=== PATIENT | male | born 1955 | race Caucasian/White ===

== ENCOUNTER 2018-08-11 11:33 | Emergency (ER) | payer OTHER, SELFPAY ==
[2018-08-11 11:34] VITALS: BP 148/78; PULSE 64; RESP 16; TEMP 36.6; O2SAT 96; BMI 29.7
--- NOTE | 2018-08-11 12:12 | CT_ITS ---
STUDY: CT ABDOMEN AND PELVIS WITHOUT CONTRAST REASON FOR EXAM: Male, 63 years old. Right lower quadrant pain. History of prior hernia repair. RADIATION DOSAGE (If Supplied By Facility): CTDIvol = ( 16.21 ) mGy, DLP = ( 1278.93 ) mGycm TECHNIQUE: Transaxial images were obtained from the dome of the diaphragm to the symphysis pubis without oral contrast, and without intravenous contrast. Sagittal and coronal images were reconstructed. Individualized dose optimization techniques were used for this CT. COMPARISON: None. FINDINGS: The visualized lung bases are unremarkable. The visualized portions of the heart are within normal limits. There is decreased attenuation of the liver consistent with steatosis. Normal gallbladder and extrahepatic biliary system. Normal spleen. Normal pancreas. Normal bilateral adrenal glands. There is evidence of right perinephric stranding. Mild degree of right hydronephrosis and the right and hydroureter due to a 3.5 mm taxus at the right ureterovesical junction. The calculus is about to enter into the urinary bladder. Normal left kidney. Normal visualized stomach. Normal small intestine. There are scattered colonic diverticula consistent with diverticulosis. The appendix is visualized and appears normal. There is scattered atherosclerotic calcification of the abdominal aorta, without a demonstrated aneurysm. Normal inferior vena cava. Normal retroperitoneum. Normal urinary bladder. There is enlargement of the prostate gland. It measures 4.3 cm x 5 cm. Central calcifications are seen within Small bilateral inguinal areas containing fat. The patient is status post bilateral mastectomy. There are degenerative changes of the visualized lumbar spine. CT/Abdomen/Pelvis W IV Cont ONLY IMPRESSION: Right perinephric stranding with right hydronephrosis and hydroureter due to a 3.5 mm calculus at the right ureterovesical junction as it enters the urinary bladder. Electronically Signed: Lucius Huang MD at 13:51 EST Tel [phone], Service support ,
--- NOTE | 2018-08-11 12:13 | ED.VIS.GEN ---
History of Present Illness Chief Complaint: Abd Pain Informant: Patient Onset: Hours - 8 Context: Gradual Onset Timing: Continuous - not colicky Quality: ache Location: RLQ Current Severity: Severe Maximum Severity: Severe Worsened by: bumps in road during car rides Relieved by: nothing Associated Symptoms: n/v Narrative: Never had this pain before. Saw his PCP today and sent to the ER regarding possible appendicitis. He had a herniorrhaphy in the past and no other abdominal surgeries. No urinary symptoms, no problem with bowel movements, no fevers. Prior similar symptoms: No Past Medical History - Allergies and Home Meds Allergies/Adverse Reactions: Allergies No Known Allergies Allergy (Verified 08/11/18 11:36) Primary Care Physician: Michael Bhatt MD [Primary Care Provider] - Past Medical History: None Surgical History: herniorrhaphy Lives: Spouse/ Significant Other Smoking Status: Never smoker Review of Systems General: Reports: Malaise. Denies: Chills, Fever, Sweats Cardiovascular: Denies: Chest pain, Palpitations Respiratory: Denies: Dyspnea, Cough, Dyspnea on exertion Gastrointestinal: Reports: Abdominal pain, Nausea, Vomiting. Denies: Diarrhea, Constipation, Melena, Hematochezia Genitourinary: Denies: Dysuria, Hematuria, Frequency Musculoskeletal: Denies: Neck pain, Back pain, Swelling, Extremity Pain Skin: Denies: Rash, Abscess Neurological: Denies: Headache, Weakness, Numbness Psych: Denies: Anxiety, Suicidal thoughts Endocrine: Denies: Polyuria, Polydipsia Hematologic: Denies: Easy bruising, Easy bleeding Allergy: Denies: Swelling of the mouth, Swelling of the tongue Physical Exam Vital Signs/Narrative: Vital Signs Temp Pulse Resp BP Pulse Ox 08/11/18 11:34 97.9 F 64 16 148/78 H 96 Inital Vital Signs reviewed: Yes General: Well nourished, Well developed Head: Normocephalic, Atraumatic Eyes: Perrl, EOMI ENT: Moist mucous membranes, No rhinorrhea Neck: Supple, Nontender Cardiovascular: Regular rate, Regular rhythm, No murmurs Respiratory: No distress, CTA bilaterally, Chest nontender Abdomen: Soft, Nondistended, Normal bowel sounds, Tender - Right lower quadrant, lateral to McBurney's point. Negative for: Guarding, Rebound tenderness, Inguinal hernia, Psoas sign, Obturator sign, Rovsig's sign, Weaver's sign Back: Nontender, Normal Inspection. Negative for: CVA tenderness Extremities: Nontender, No edema Skin: Normal color, No rash Neurological: Alert, Oriented x3, Cranial nerves II-XII grossly intact, Normal Strength, Normal Sensation Psychological: Normal affect Diagnostic/Tx/Re-eval Impressions Abdomen/Pelvis CT 08/11/18 12:12 IMPRESSION: Right perinephric stranding with right hydronephrosis and hydroureter due to a 3.5 mm calculus at the right ureterovesical junction as it enters the urinary bladder. Electronically Signed: Lucius Huang MD at 13:51 EST Tel [phone], Service support , 08/11/18 12:12 Abdomen/Pelvis W IV Cont ONLY [CT] Stat Laboratory Results 08/11/18 08/11/18 08/11/18 12:27 12:27 14:25 WBC 9.6 RBC 4.92 Hgb 15.8 Hct 46.4 MCV 94.3 H MCH 32.1 H MCHC 34.1 RDW 13.6 RDW Differential 45.2 H Plt Count 173 MPV 10.5 Immature Gran % (Auto) 0.100 Neut % (Auto) 86.7 H Lymph % (Auto) 5.3 L [place] % (Auto) 7.7 Eos % (Auto) 0.0 Baso % (Auto) 0.2 Absolute Neuts (auto) 8.3 H Absolute Lymphs (auto) 0.51 L Total Counted Not Reportable Differential Comment COMMENT Sodium 144 Potassium 4.2 Chloride 111 H Carbon Dioxide 25.0 Anion Gap 8 BUN 17 Creatinine 1.31 H Estim Creat Clear Calc 66.92 Est GFR (MDRD) Af Amer 71 Est GFR (MDRD) Non-Af 59 L BUN/Creatinine Ratio 13.0 Glucose 129 H Calcium 9.2 Total Bilirubin 0.60 AST 20 ALT 35 Alkaline Phosphatase 72 Total Protein 8.2 Albumin 4.4 Globulin 3.8 Albumin/Globulin Ratio 1.2 Urine Color Yellow Urine Clarity Clear Urine pH 6.0 Ur Specific [place] 1.010 Urine Protein Negative Urine Glucose (UA) Normal Urine Ketones 15 H Urine Occult Blood Negative Urine Nitrite Negative Urine Bilirubin Negative Urine Urobilinogen Normal Ur Leukocyte Esterase 25 H - Medical Decision Making After a dose of morphine, patient really did not feel much better. Therefore he was given another dose along with Toradol, and on reevaluation is discomfort is completely gone. CT showed a normal appendix and right perinephric stranding with hydronephrosis from a 3.5 mm UVJ stone, likely explaining his symptoms. He was reassured. He feels well. Expectant management indicated. Given urology for follow-up if he needs it, he does have a little renal insufficiency unknown if that is acute or chronic, no old labs available. No sign of urine infection associated with this. Given urine strainers, her prescription for analgesics, as well as Flomax to see if that helps, given reasons to return. He is comfortable with this plan. ED Disposition - Plan for ED Patient: Disposition: Home or Assisted Living Chief Complaint: Abd Pain Diagnosis: Ureteral colic, Urolithiasis, Renal insufficiency Instructions: ED Stone Renal W Colic, ED Strainer Urine Prescriptions: Oxycodone HCl/Acetaminophen [Percocet 5/325] 1 tab PO Q4H PRN PRN 3 Days #18 tab PRN Reason: Pain Ondansetron [Zofran] 8 mg PO Q8H PRN PRN #15 tab PRN Reason: Nausea Tamsulosin HCl [Flomax] 0.4 mg PO DAILY #7 cap Referrals: Michael Bhatt MD [Primary Care Provider] - Luciano Pryor MD [STAFF PHYSICIAN] - 10-14 Days if not better
[2018-08-11] MEDS: Morphine 4 MG/ML Syringe IV ×2 (12:31→13:41)
[2018-08-11] MEDS: 0.9% Normal Saline 1,000 ML 1000 ML IV (12:33)
[2018-08-11] MEDS: Ondansetron 4 MG/2 ML Vial IV (12:33)
[2018-08-11 12:48] LABS: Absolute Lymphocyte Count 0.51 X10^3/ul (0.83-4.51); Absolute Neutrophil Count 8.3 X10^3/uL (2.0-7.7); Basophil# 0.02 X10^3/uL; Basophil% 0.2 % (0-1); Hematocrit 46.4 % (40-54); Hemoglobin 15.8 g/dl (13.0-16.5); Lymphocyte # 0.51 X10^3/ul (4.0); Lymphocyte % 5.3 % (19-41); Mean Corp Hgb Conc 34.1 g/gl (32-36); Mean Corpuscular Hgb 32.1 pg (27.0-32.0); Mean Corpuscular Volume 94.3 fL (80-94); Mean Platelet Vol. 10.5 fl (6.2-12.0); Monocyte# 0.74 X10^3/uL; Monocyte% 7.7 % (0-10); Neutrophil # 8.27 X10^3/uL (2.7-7.7); Neutrophil % 86.7 % (47-70); Platelet Count 173 K/mm3 (150-450); RBC Distribution Width CV 13.6 % (11.6-14.6); RBC Distribution Width SD 45.2 fl (35.1-43.9); Red Blood Count 4.92 M/mm3 (4.6-6.2); White Blood Count 9.6 K/mm3 (4.4-11.0)
[2018-08-11 12:49] LABS: Differential Indicated SCAN CRITERIA MET; POSITIVE COUNT NO; POSITIVE DIFFERENTIAL YES; POSITIVE MORPHOLOGY NO
[2018-08-11 12:52] LABS: ALB/GLOB Ratio 1.2 RATIO (0.9-2.4); AST(SGOT) 20 U/L (15-37); Alanine Aminotransfer ALT/SGPT 35 U/L (16-61); Albumin, Serum 4.4 g/dL (3.2-5.0); Alkaline Phosphatase 72 U/L (45-117); Anion Gap 8 (5-15); BUN 17 mg/dL (7-18); Calcium,Total 9.2 mg/dL (8.5-10.1); Chloride 111 mmol/L (98-107); Creatinine, Serum 1.31 mg/dL (0.70-1.30); EST Glomerular Filtration Rate 59 mL/min (>60); Est Glom Filt Rate - Afr Amer 71 mL/min (>60); Estimated Creatinine Clearance 66.92 ml/min; Globulin 3.8 g/dL (2.2-4.2); Glucose 129 mg/dL (74-106); Potassium 4.2 mmol/L (3.5-5.1); Protein, Total 8.2 g/dL (6.4-8.2); Sodium Level 144 mmol/L (136-145)
[2018-08-11] MEDS: Ketorolac 15 MG/ML Vial IV (14:20)
[2018-08-11 14:26] VITALS: BP 141/88; PULSE 77; RESP 16; O2SAT 98
[2018-08-11 14:27] LABS: Bacteria 0 SEEN /hpf (None Seen); Mucous, Urine 0 SEEN /hpf (<or=2+); Red Blood Cells-Urine 0 SEEN /hpf (0-5); Squamous Epithelial Cells - UA 0 SEEN /hpf (0-5)
[2018-08-11 14:29] LABS: Color, Urine Yellow (Yellow); Glucose, Dipstick Normal (Normal); Ketone-Dipstick 15 mg/dl (Negative); Leukocyte Esterase-Dipstick 25 /ul (Negative); Nitrite-Dipstick Negative (Negative); Occult Blood-Urine Negative /ul (Negative); Protein-Dipstick Negative (Negative); Urine Bilirubin Dipstick Negative (Negative); Urine Clarity Clear (Clear); Urine Urobilinogen Normal (Normal)
[2018-08-11 14:52] LABS: White Blood Cells 0-5 SEEN /hpf (0-5)
[2018-08-11 15:05] VITALS: BP 125/83; PULSE 87; RESP 16; O2SAT 95
--- OUTSIDE RECORDS SUMMARY | 2018-09-27 09:35 | XMS RPT_ITS ---
:1955 Author Organization [facility] Care Team Providers Name Role Phone HIRAL GOMEZ Attending Unavailable GERA SMITH Primary Care Unavailable PROBLEMS PROBLEMS DATE TYPE CONDITION / CODE ATTENDING STATUS SOURCE 08/11/2018 Unknown N20.0 - Calculus HIRAL GOMEZ Active [place] [facility] N20.0(ICD-10) Hospital Repository PROCEDURES PROCEDURES No Procedure Records FoundRESULTS RESULTS EMERGENCY DEPARTMENT Observed: 08/11/2018 Status: F Source: [place] SUMMARY 2:49 PM [facility] REPOSITORY [facility] Medical Records Department [address] [place] [address] Emergency Department Summary 08/11/18 1213 MR#: [id number] Acct: [id number] Name: ALEN MAR Rep #: [id number] : 1955 63 From: Hiral Gomez MD PCP: Gera Smith MD Status: REG ER History of Present Illness Chief Complaint: Abd Pain Informant: Patient Onset: Hours - 8 Context: Gradual Onset Timing: Continuous - not colicky Quality: ache Location: RLQ Current Severity: Severe Maximum Severity: Severe Worsened by: bumps in road during car rides Relieved by: nothing Associated Symptoms: n/v Narrative: Never had this pain before. Saw his PCP today and sent to the ER regarding possible appendicitis. He had a herniorrhaphy in the past and no other abdominal surgeries. No urinary symptoms, no problem with bowel movements, no fevers. Prior similar symptoms: No Past Medical History - Allergies and Home Meds Allergies/Adverse Reactions: Allergies No Known Allergies Allergy (Verified 08/11/18 11:36) Primary Care Physician: Gera Smith MD [Primary Care Provider] - Past Medical History: None Surgical History: herniorrhaphy Lives: Spouse/ Significant Other Smoking Status: Never smoker Review of Systems General: Reports: Malaise. Denies: Chills, Fever, Sweats Cardiovascular: Denies: Chest pain, Palpitations Respiratory: Denies: Dyspnea, Cough, Dyspnea on exertion Gastrointestinal: Reports: Abdominal pain, Nausea, Vomiting. Denies: Diarrhea, Constipation, Melena, Hematochezia Genitourinary: Denies: Dysuria, Hematuria, Frequency Musculoskeletal: Denies: Neck pain, Back pain, Swelling, Extremity Pain Skin: Denies: Rash, Abscess Neurological: Denies: Headache, Weakness, Numbness Psych: Denies: Anxiety, Suicidal thoughts Endocrine: Denies: Polyuria, Polydipsia Hematologic: Denies: Easy bruising, Easy bleeding Allergy: Denies: Swelling of the mouth, Swelling of the tongue Physical Exam Vital Signs/Narrative: Vital Signs 08/11/18 11:34 97.9 F 64 16 148/78 H 96 Inital Vital Signs reviewed: Yes General: Well nourished, Well developed Head: Normocephalic, Atraumatic Eyes: Perrl, EOMI ENT: Moist mucous membranes, No rhinorrhea Neck: Supple, Nontender Cardiovascular: Regular rate, Regular rhythm, No murmurs Respiratory: No distress, CTA bilaterally, Chest nontender Abdomen: Soft, Nondistended, Normal bowel sounds, Tender - Right lower quadrant, lateral to McBurney's point. Negative for: Guarding, Rebound tenderness, Inguinal hernia, Psoas sign, Obturator sign, Rovsig's sign, Weaver's sign Back: Nontender, Normal Inspection. Negative for: CVA tenderness Extremities: Nontender, No edema Skin: Normal color, No rash Neurological: Alert, Oriented x3, Cranial nerves II-XII grossly intact, Normal Strength, Normal Sensation Psychological: Normal affect Diagnostic/Tx/Re-eval Impressions Abdomen/Pelvis CT 08/11/18 12:12 IMPRESSION: Right perinephric stranding with right hydronephrosis and hydroureter due to a 3.5 mm calculus at the right ureterovesical junction as it enters the urinary bladder. Electronically Signed: Lucius Huang MD at 13:51 EST Tel [phone], Service support , 08/11/18 12:12 Abdomen/Pelvis W IV Cont ONLY [CT] Stat Laboratory Results WBC 9.6 RBC 4.92 Hgb 15.8 Hct 46.4 MCV 94.3 H - Medical Decision Making After a dose of morphine, patient really did not feel much better. Therefore he was given another dose along with Toradol, and on reevaluation is discomfort is completely gone. CT showed a normal appendix and right perinephric stranding with hydronephrosis from a 3.5 mm UVJ stone, likely explaining his symptoms. He was reassured. He feels well. Expectant management indicated. Given urology for follow-up if he needs it, he does have a little renal insufficiency unknown if that is acute or chronic, no old labs available. No sign of urine infection associated with this. Given urine strainers, her prescription for analgesics, as well as Flomax to see if that helps, given reasons to return. He is comfortable with this plan. ED Disposition - Plan for ED Patient: Disposition: Home or Assisted Living Chief Complaint: Abd Pain Diagnosis: Ureteral colic, Urolithiasis, Renal insufficiency Instructions: ED Stone Renal W Colic, ED Strainer Urine Prescriptions: Oxycodone HCl/Acetaminophen [Percocet 5/325] 1 tab PO Q4H PRN PRN 3 Days #18 tab PRN Reason: Pain Ondansetron [Zofran] 8 mg PO Q8H PRN PRN #15 tab PRN Reason: Nausea Tamsulosin HCl [Flomax] 0.4 mg PO DAILY #7 cap Referrals: Gera Smith MD [Primary Care Provider] - Luciano Pryor MD [STAFF PHYSICIAN] - 10-14 Days if not better What to do if you have Problems For any increased pain, shortness of breath, bleeding, nausea or vomiting, chest pain, or any unexpected problems, contact your Primary Care Provider. Call [facility] ([phone]) or report to the closest Emergency Room. Call 911 if necessary. 08/11/18 1024 <Electronically signed by Hiral Gomez MD> Date Hiral Gomez MD Cosigner Signature (If Indicated): Date CC: Gera Smith MD URINALYSIS, COMPLETE Collected: 08/11/2018 Status: F Source: [place] 2:25 PM [facility] REPOSITORY Order Comment: Order Date: 08/11/18 How was Urine Obtained? CLEAN CATCH TYPE CODE TESTS RESULT OUT OF RANGE REFERENCE UNITS LAB L400.3000 Yellow COLOR Normal Yellow LAB L400.3050 Clear Normal CLARITY Clear LAB L400.3200 Normal mg/dl Normal GLUCOSE, UR Normal LAB L400.3300 Negative mg/dL Normal BILIRUBIN URINE Negative LAB L400.3400 Negative mg/dl High 15 KETONE UR LAB L400.3465 1.002-1.030 Normal SP.GR. DIPSTX 1.010 LAB L400.3550 5.0 - 8.0 pH UR Normal 6.0 LAB L400.3600 Negative mg/dl PROT Normal DIPSTX Negative LAB L400.3700 Normal mg/dl Normal UROBILI Normal LAB L400.3750 Negative Normal NITRITE UR Negative LAB L400.3780 Negative /ul Normal OCCULT BLOOD-UR Negative LAB L400.3800 Negative /ul High LEUK 25 ESTERASE LAB L400.4050 0-5 /hpf WBC Normal 0-5 SEEN LAB L400.4100 0-5 /hpf 0 Normal RBC-UA SEEN LAB L400.4150 0-5 /hpf SQUAM 0 Normal EPI SEEN LAB L400.4300 None Seen /hpf 0 Normal BACTERIA SEEN LAB L400.4350 <or=2+ /hpf 0 Normal MUCUS, URINE SEEN Performed By: #### L400.0001 #### [facility] [address] [place], [place], [id number] CBC W/DIFF, AUTOMATED Collected: 08/11/2018 Status: F Source: [place] 12:27 PM [facility] REPOSITORY TYPE CODE TESTS RESULT OUT OF RANGE REFERENCE UNITS LAB L100.1000 4.4-11.0 K/mm3 Normal WBC 9.6 LAB L100.1200 4.6-6.2 M/mm3 Normal RBC 4.92 LAB L100.1300 13.0-16.5 g/dl Normal HGB 15.8 LAB L100.1400 40-54 % Normal HCT 46.4 LAB L100.1500 80-94 fL High MCV 94.3 LAB L100.1600 27.0-32.0 pg High MCH 32.1 LAB L100.1700 32-36 g/gl Normal MCHC 34.1 LAB L100.1810 11.6-14.6 % Normal RDW CV 13.6 LAB L100.1820 35.1-43.9 fl High RDW SD 45.2 LAB L100.1900 150-450 K/mm3 Normal PLT 173 LAB L100.2000 6.2-12.0 fl Normal MPV 10.5 LAB L100.2100 47-70 % High NEUT% 86.7 LAB L100.2200 19-41 % Low LY% 5.3 LAB L100.2300 0-10 % Normal MONO% 7.7 LAB L100.2400 0-5 % Normal EO% 0.0 LAB L100.2500 0-1 % Normal BASO% 0.2 LAB L100.2550 0.0-0.9 % Normal IM GRAN % 0.100 Result Comment: IG% - Immature Granulocytes (promyelocytes, myelocytes and metamyelocytes) > 1% indicates that a LEFT SHIFT is Present. LAB L100.2620 2.0-7.7 X10 3/uL High Absolute Neut 8.3 LAB L100.2720 0.83-4.51 X10 3/ul Low Absolute Lymph 0.51 LAB L100.4500 Normal SMEAR COMMENT COMMENT Result Comment: SLIDE SCANNED - LYMPHOPENIA NOTED. Performed By: #### L100.0100 #### [facility] [address] [place], [address] COMPREHENSIVE METABOLIC Collected: 08/11/2018 Status: F Source: [facility] 12:27 PM [facility] REPOSITORY TYPE CODE TESTS RESULT OUT OF RANGE REFERENCE UNITS LAB L501.0100 74-106 mg/dL High GLU 129 Result Comment: Fasting Glucose result greater than or equal to 126 mg/dL suggests DIABETES MELLITUS per A.D.A. criteria. Please note revised GLUCOSE reference range effective 2017. LAB L501.1000 7-18 mg/dL Normal BUN 17 LAB L501.1100 0.70-1.30 mg/dL High CREAT,SERUM 1.31 Result Comment: The validity of the calculated GFR AND GFRAA in patients over 70 years has not been determined. Clinical correlation is essential. LAB L501.1110 >60 mL/min Low EST GFR 59 Result Comment: Non- GFR Calc LAB L501.1115 >60 mL/min Normal EST GFR - AA 71 Result Comment: GFR Calc LAB L501.1255 ml/min Normal Estimated CRCL 66.92 LAB L501.1300 10-20 RATIO Normal BUN/CRE 13.0 LAB L501.1500 6.4-8. g/dL Normal 2 T PROT 8.2 LAB L501.1800 3.2-5. g/dL Normal 0 ALB 4.4 LAB L501.1950 2.2-4. g/dL Normal 2 GLOB 3.8 LAB L501.2000 0.9-2. RATIO Normal 4 A/G 1.2 LAB L501.2200 8.5-10 mg/dL Normal .1 CA 9.2 LAB L501.4100 15-37 U/L Normal AST 20 LAB L501.4305 45-117 U/L Normal ALK P 72 LAB L501.4405 16-61 U/L Normal ALT 35 LAB L501.4600 0.20-1 mg/dL Normal .00 T BILI 0.60 LAB L501.5300 136-14 mmol/L Normal 5 NA 144 LAB L501.5600 3.5-5. mmol/L Normal 1 K 4.2 LAB L501.5900 98-107 mmol/L High CL 111 LAB L501.6100 21.0-3 mmol/L Normal 2.0 CO2 25.0 LAB L501.6200 5-15 Normal GAP 8 Performed By: #### L500.4050 #### [facility] [address] [place], [address] ABDOMEN/PELVIS W IV CONT Observed: 08/11/2018 Status: F Source: [place] ONLY 12:13 PM [facility] REPOSITORY [facility] Imaging Services [address] [place] [address] Abdomen/Pelvis W IV Cont ONLY MR#: [id number] Acct: [id number] Name: ALEN MAR Rep #: [id number] : 1955 M 63 From: Lucius Huang MD PCP: Gera Smith MD Status: REG ER Study: Abdomen/Pelvis W IV Cont ONLY Date of Exam: 08/11/18 Exam# [id number] Ordering Dr: Hiral Gomez MD STUDY: CT ABDOMEN AND PELVIS WITHOUT CONTRAST REASON FOR EXAM: Male, 63 years old. Right lower quadrant pain. History of prior hernia repair. RADIATION DOSAGE (If Supplied By Facility): CTDIvol = ( 16.21 ) mGy, DLP = ( 1278.93 ) mGycm TECHNIQUE: Transaxial images were obtained from the dome of the diaphragm to the symphysis pubis without oral contrast, and without intravenous contrast. Sagittal and coronal images were reconstructed. Individualized dose optimization techniques were used for this CT. COMPARISON: None. FINDINGS: The visualized lung bases are unremarkable. The visualized portions of the heart are within normal limits. There is decreased attenuation of the liver consistent with steatosis. Normal gallbladder and extrahepatic biliary system. Normal spleen. Normal pancreas. Normal bilateral adrenal glands. There is evidence of right perinephric stranding. Mild degree of right hydronephrosis and the right and hydroureter due to a 3.5 mm taxus at the right ureterovesical junction. The calculus is about to enter into the urinary bladder. Normal left kidney. Normal visualized stomach. Normal small intestine. There are scattered colonic diverticula consistent with diverticulosis. The appendix is visualized and appears normal. There is scattered atherosclerotic calcification of the abdominal aorta, without a demonstrated aneurysm. Normal inferior vena cava. Normal retroperitoneum. Normal urinary bladder. There is enlargement of the prostate gland. It measures 4.3 cm x 5 cm. Central calcifications are seen within Small bilateral inguinal areas containing fat. The patient is status post bilateral mastectomy. There are degenerative changes of the visualized lumbar spine. CT/Abdomen/Pelvis W IV Cont ONLY IMPRESSION: Right perinephric stranding with right hydronephrosis and hydroureter due to a 3.5 mm calculus at the right ureterovesical junction as it enters the urinary bladder. Electronically Signed: Lucius Huang MD at 13:51 EST Tel [phone], Service support , CC: HIRAL GOMEZ MD; Gera Smith MD Director Sports: Signed ALLERGIES ALLERGIES DATE TYPE / CODE NAME / CODE REACTION SEVERITY SOURCE 08/11/2018 Drug No Known Unknown [facility] Allergy/4160 Allergies/F00 Hospital 21145(SNOMED [id number](RXNOR Repository CT) M) ENCOUNTERS ENCOUNTERS ADMIT/DISCHARGE ACCOUNT ADMITTING ENCOUNTER LOCATION SOURCE NUMBER CLASS 08/11/2018/ [id number] Emergency [place] [facility] [address] [facility] ing:ED Repository PAYERS PAYERS ENCOUNTER GUARANTOR PAYER SUBSCRIBER SOURCE 08/11/2018 ALEN Peña [place] [address] [facility]: [facility], [facility]: [id number] [address]Tsd: [id number] Repository Date:1933-05-46[address] [id number], [place] [address]CH: 08/11/2018 Secondary NOT GIVENUNK Steve Insurance:SELF PAY [facility] Number: Effective Repository Date:2018-08-11
== END 2018-08-11 15:14 | disposition home or self-care (01) ==
PROVIDERS: Emergency Provider Emergency Medicine; Family Provider Family Medicine; PCP Family Medicine
DX: N13.2 Hydronephrosis with renal and ureteral calculous obstruction (principal); Z79.899 Other long term (current) drug therapy
CPT/HCPCS: 74177; 80053; 81001; 85025; 96361; 96374; 96375; 96376; 99283; J7030; Q9967; A4216; J2405

== ENCOUNTER → 2025-02-21 | Outpatient (CLI) | payer OTHER, SELFPAY ==
[2025-02-21 12:38] LABS: Absolute Lymphocyte Count 1.83 X10^3/uL (0.83-4.51); Absolute Neutrophil Count 2.2 X10^3/uL (2.0-7.7); Basophil# 0.04 X10^3/uL; Basophil% 0.9 % (0-1); Eosinophil# 0.04 X10^3/uL; Eosinophils% 0.9 % (0-5); Hematocrit 49.3 % (40-54); Hemoglobin 16.4 g/dL (13.0-16.5); Lymphocyte # 1.83 X10^3/ul (0.83-4.51); Lymphocyte % 40.2 % (19-41); Mean Corp Hgb Conc 33.3 g/dL (32-36); Mean Corpuscular Hgb 31.9 pg (27.0-32.0); Mean Corpuscular Volume 95.9 fL (80-94); Mean Platelet Vol. 10.9 fl (6.2-12.0); Monocyte# 0.48 X10^3/uL; Monocyte% 10.5 % (0-10); NRBC Flagged by Analyzer 0 % (0-5); Neutrophil # 2.16 X10^3/uL (2.7-7.7); Neutrophil % 47.5 % (47-70); Platelet Count 211 K/mm3 (150-450); RBC Distribution Width CV 13.5 % (11.6-14.6); RBC Distribution Width SD 48.9 fl (35.1-43.9); Red Blood Count 5.14 M/mm3 (4.6-6.2); White Blood Count 4.6 K/mm3 (4.4-11.0)
[2025-02-21 13:33] LABS: ALB/GLOB Ratio 1.3 RATIO (0.9-2.4); AST(SGOT) 25 U/L (<=37); Alanine Aminotransfer ALT/SGPT 24 U/L (<=46); Albumin, Serum 4.4 g/dL (3.4-4.8); Alkaline Phosphatase 72 U/L (40-129); Anion Gap 11 (5-15); BUN 14 mg/dL (4-19); BUN/Creat Ratio 14.9 RATIO (10-20); Calcium,Total 9.4 mg/dL (7.6-11.0); Carbon Dioxide 25.9 mmol/L (21.0-32.0); Chloride 103 mmol/L (98-108); Cholesterol 258 mg/dL (<=200); Creatinine, Serum 0.91 mg/dL (0.70-1.20); EST Glomerular Filtration Rate 93 (>60); Globulin 3.3 g/dL (2.2-4.2); Glucose 101 mg/dL (70-99); High Density Lipoprotein 78 mg/dL; Low Density Lipoprotein Calc. 129 mg/dL; Potassium 4.2 mmol/L (3.3-5.1); Protein, Total 7.7 g/dL (5.9-8.4); Sodium Level 140 mmol/L (133-145); Total Bilirubin 0.56 mg/dL (0.00-1.30); Triglycerides 258 mg/dL; Very Low Density Lipoprotein 52 mg/dL (5-40); cholesterol:hdl ratio screen 3.33
[2025-02-21 13:48] LABS: PSA,Total - Annual Screen 1.01 ng/mL (0.02-4.00)
--- OUTSIDE RECORDS SUMMARY | 2025-02-21 20:54 | XMS RPT_ITS | CCD ---
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 Name Role Phone HIRAL GOMEZ Unavailable Unavailable GERA SMITH Unavailable Unavailable Problems Problem Classification Problem Date Documented Da te Episodic/Chronic Calculus of urinary tract (1 source) Calculus of kidney; Translations: [N20.0 - Calculus of kidney] Onset: 08-11-2018 Episodic Results Test Name Value Interpretation Reference Range Facility ABDOMEN AP VIEWon 09-12-2021 ABDOMEN AP VIEW Patient Name: ALEN MAR STUDY: ABDOMEN AP VIEW INDICATION: R10.31 COMPARISON: None ACCESSION NUMBER(S): [id number] ORDERING CLINICIAN: GERA SMITH FINDINGS: No radiopaque densities projecting over the expected shadows of the bilateral kidneys or expected course of the right ureter. A triangular shaped calcific density visualized projecting adjacent to the inferior left sacral ala favored to represent a vascular calcifications with distal ureteral stone felt to be less likely. Bilateral rounded calcific densities likely representing pelvic phleboliths noted. Lower lumbar spine degenerative changes noted. Bowel gas pattern is nonspecific and nonobstructive. IMPRESSION: No evidence of bilateral nephrolithiasis. A triangular shaped calcific density visualized projecting adjacent to the inferior left sacral ala favored to represent a vascular calcifications with distal ureteral stone felt to be less likely. Electronically signed by: ADAN HARO MD [facility] Abdomen/Pelvis W IV Cont ONL Yon 08-11-2018 Abdomen/Pelvis W IV Cont ONLY [facility] [address] [place], [place] [address]Czimhwf/Pelvis W IV Cont ONLYMR#: [id number] Acct: [id number]: ALEN MAR Rep #: [id number]: 1955 M 63 From: Lucius Huang MDPCP: Gera Smith MD Status: REG ERStudy: Abdomen/Pelvis W IV Cont ONLY Date of Exam: 08/11/18Exam# [id number] Ordering Dr: Hiral Gomez MDSTUDY: CT ABDOMEN AND PELVIS WITHOUT CONTRASTREASON FOR EXAM: Male, 63 years old. Right lower quadrant pain. Historyof prior hernia repair.RADIATION DOSAGE (If Supplied By Facility): CTDIvol = ( 16.21 ) mGy, DLP =( 1278.93 ) mGycmTECHNIQUE: Transaxial images were obtained from the dome of the diaphragmto the symphysis pubis without oral contrast, and without intravenouscontrast. Sagittal and coronal images were reconstructed.Individual ized dose optimization techniques were used for this CT.COMPARISON: None. FINDINGS :The visualized lung bases are unremarkable. The visualized portions of theheart are within normal limits.There is decreased attenuation of the liver consistent with steatosis.Normal gallbladder and extrahepatic biliary system. Normal spleen. Normalpancreas.Normal bilateral adrenal glands.There is evidence of right perinephric stranding. Mild degree of righthydronephrosis and the right and hydroureter due to a 3.5 mm taxus at theright ureterovesical junction. The calculus is about to enter into theurinary bladder. Normal left kidney.Normal visualized stomach. Normal small intestine. There are scatteredcolonic diverticula consistent with diverticulosis. The appendix isvisualized and appears normal.There is scattered atherosclerotic calcification of the abdominal aorta,without a demonstrated aneurysm. Normal inferior vena cava. Normalretroperitoneum.No rmal urinary bladder. There is enlargement of the prostate gland. Itmeasures 4.3 cm x 5 cm. Central calcifications are seen withinSmall bilateral inguinal areas containing fat. The patient is status postbilateral mastectomy. There are degenerative changes of the visualizedlumbar spine. ORDER #: [id number] CT/Abdomen/Pelvis W IV Cont ONLYIMPRESSION:Right perinephric stranding with right hydronephrosis and hydroureter dueto a 3.5 mm calculus at the right ureterovesical junction as it enters theurinary bladder.Electronically Signed:Lucius Huang MD at 13:51 ESTTel [phone], Service support , AY: HIRAL GOMEZ MD; Gera Smith MD Balancer Scale:Signed Normal [facility] CBC W/Diff, Automatedon 07-30 SMEAR COMMENT COMMENT Normal [facility] Comment on above: Result Comment: SLID E SCANNED - LYMPHOPENIA NOTED. Performed By: #### L 100.0100 ####[facility] [address] [place], [address] Absolute Neut 8.3 X10 3/uL High 2.0-7.7 [facility] Comment on above: Performed By: #### L 100.0100 ####[facility] [address] [place], [address] Basophils/100 WBC Auto (Bld) 0.2 % Normal 0-1 [facility] Comment on above: Performed By: #### L 100.0100 ####[facility] [address] [place], [address] Eosinophils/100 WBC Auto (Bld) 0.0 % Normal 0-5 [facility] Comment on above: Performed By: #### L 100.0100 ####[facility] [address] [place], [address] Erythrocyte distribution width Auto Ratio (RBC) 13.6 % Normal 11.6-14.6 [facility] Comment on above: Performed By: #### L 100.0100 ####[facility] [address] [place], [address] Hematocrit Auto Volume Fraction (Bld) 46.4 % Normal 40-54 [facility] Comment on above: Performed By: #### L 100.0100 ####[facility] [address] [place], [address] Hemoglobin mass conc (Bld) 15.8 g/dL Normal 13.0-16.5 [facility] Comment on above: Performed By: #### L 100.0100 ####[facility] [address] [place], [address] IM GRAN % 0.100 % Normal 0.0-0.9 [facility] Comment on above: Result Comment: IG% - Immature Granulocytes (promyelocytes, myelocytes andmetamyelocytes) > 1% indicates that a LEFT SHIFT is Present. Performed By: #### L 100.0100 ####[facility] [address] [place], [address] Lymphocytes Auto #/vol (Bld) 0.51 X10 3/ul Low 0.83-4.51 [facility] Comment on above: Performed By: #### L 100.0100 ####[facility] [address] [place], [address] Lymphocytes/100 WBC Auto (Bld) 5.3 % Low 19-41 [facility] Comment on above: Performed By: #### L 100.0100 ####[facility] [address] [place], [address] MCH Auto Entitic mass (RBC) 32.1 pg High 27.0-32.0 [facility] Comment on above: Performed By: #### L 100.0100 ####[facility] [address] [place], [address] MCHC Auto mass conc (RBC) 34.1 g/gl Normal 32-36 [facility] Comment on above: Performed By: #### L 100.0100 ####[facility] [address] [place], [address] MCV Auto Entitic volume (RBC) 94.3 fL High 80-94 [facility] Comment on above: Performed By: #### L 100.0100 ####[facility] [address] [place], [address] Monocytes/100 WBC Auto (Bld) 7.7 % Normal 0-10 [facility] Comment on above: Performed By: #### L 100.0100 ####[facility] [address] [place], [address] Neutrophils/100 WBC Auto (Bld) 86.7 % High 47-70 [facility] Comment on above: Performed By: #### L 100.0100 ####[facility] [address] [place], [address] Platelet mean volume Auto Entitic volume (Bld) 10.5 fL Normal 6.2-12.0 [facility] Comment on above: Performed By: #### L 100.0100 ####[facility] [address] [place], [address] Platelets Auto #/vol (Bld) 173 10*3/uL Normal 150-450 [facility] Comment on above: Performed By: #### L 100.0100 ####[facility] [address] [place], [address] RBC Auto #/vol (Bld) 4.92 M/mm3 Normal 4.6-6.2 [facility] Comment on above: Performed By: #### L 100.0100 ####[facility] [address] [place], [address] RDW SD 45.2 fl High 35.1-43.9 [facility] Comment on above: Performed By: #### L 100.0100 ####[facility] [address] [place], [address] WBC Auto #/vol (Bld) 9.6 10*3/uL Normal 4.4-11.0 [facility] Comment on above: Performed By: #### L 100.0100 ####[facility] [address] [place], [address] Comprehensive Metabolic Prof ctcora 08-11-2018 Albumin mass conc 4.4 g/dL Normal 3.2-5.0 [facility] Comment on above: Performed By: #### L 500.4050 ####[facility] [address] [place], [address] Albumin/Globulin mass ratio 1.2 {ratio} Normal 0.9-2.4 [facility] Comment on above: Performed By: #### L 500.4050 ####[facility] [address] [place], [address] ALP enzyme act/vol 72 U/L Normal 45-117 [facility] Comment on above: Performed By: #### L 500.4050 ####[facility] [address] [place], [address] ALT enzyme act/vol 35 U/L Normal 16-61 [facility] Comment on above: Performed By: #### L 500.4050 ####[facility] [address] [place], [address] AST enzyme act/vol 20 U/L Normal 15-37 [facility] Comment on above: Performed By: #### L 500.4050 ####[facility] [address] [place], [address] Bilirubin mass conc 0.60 mg/dL Normal 0.20-1.00 [facility] Comment on above: Performed By: #### L 500.4050 ####[facility] [address] [place], [address] Calcium mass conc 9.2 mg/dL Normal 8.5-10.1 [facility] Comment on above: Performed By: #### L 500.4050 ####[facility] [address] [place], [address] Chloride molar conc 111 mmol/L High 98-107 [facility] Comment on above: Performed By: #### L 500.4050 ####[facility] [address] [place], [address] CO2 molar conc 25.0 mmol/L Normal 21.0-32.0 [facility] Comment on above: Performed By: #### L 500.4050 ####[facility] [address] [place], [address] Creatinine mass conc 1.31 mg/dL High 0.70-1.30 [facility] Comment on above: Result Comment: The validity of the calculated GFR AND GFRAA in patients over70 years has not been determined. Clinical correlation isessential. Performed By: #### L 500.4050 ####[facility] [address] [place], [address] EST GFR - AA 71 mL/min Normal >60 [facility] Comment on above: Result Comment: Afri can Russian GFR Calc Performed By: #### L 500.4050 ####[facility] [address] [place], [address] Estimated CRCL 66.92 ml/min Normal [facility] Comment on above: Performed By: #### L 500.4050 ####[facility] [address] [place], [address] GAP 8 Normal 5-15 [facility] Comment on above: Performed By: #### L 500.4050 ####[facility] [address] [place], [address] GFR/1.73 sq M predicted among non-blacks MDRD vol rate/area (S/P/Bld) 59 mL/min/{1.73_m2} Low >60 [facility] Comment on above: Result Comment: Non- GFR Calc Performed By: #### L 500.4050 ####[facility] [address] [place], [address] Globulin Calculated mass conc (S) 3.8 g/dL Normal 2.2-4.2 [facility] Comment on above: Performed By: #### L 500.4050 ####[facility] [address] [place], [address] Glucose mass conc 129 mg/dL High 74-106 [facility] Comment on above: Result Comment: Fast ing Glucose result greater than or equal to 126 mg/dLsuggests DIABETES MELLITUS per A.D.A. criteria.Please note revised GLUCOSE reference range kdjxqjnoq16/02/2018. Performed By: #### L 500.4050 ####[facility] [address] [place], [address] Potassium molar conc 4.2 mmol/L Normal 3.5-5.1 [facility] Comment on above: Performed By: #### L 500.4050 ####[facility] [address] [place], [address] Protein mass conc 8.2 g/dL Normal 6.4-8.2 [facility] Comment on above: Performed By: #### L 500.4050 ####[facility] [address] [place], [address] Sodium molar conc 144 mmol/L Normal 136-145 [facility] Comment on above: Performed By: #### L 500.4050 ####[facility] [address] [place], [address] Urea nitrogen mass conc 17 mg/dL Normal 7-18 [facility] Comment on above: Performed By: #### L 500.4050 ####[facility] [address] [place], [address] Urea nitrogen mass conc (Bld) 13.0 RATIO Normal 10-20 [facility] Comment on above: Performed By: #### L 500.4050 ####[facility] [address] [place], [address] Emergency Department Summary on 08-11-2018 [facility] [address] [address]Cxhifpcqh Department Oarkgsa62/13/18 1213#: [id number] Acct: [id number]: ALEN MAR Rep #: [id number]: 1955 63 From: Hiral Gomez MDPCP: Gera Smith MD Status: REG ERHistory of Present IllnessChief Complaint: Abd PainInformant: PatientOnset: Hours - 8Context: Gradual OnsetTiming: Continuous - not colickyQuality: acheLocation: RLQCurrent Severity: SevereMaximum Severity: SevereWorsened by: bumps in road during car ridesRelieved by: nothingAssociated Symptoms: n/vNarrative:Never had this pain before. Saw his PCP today and sent to the ER regarding possibleappendicitis. He had a herniorrhaphy in the past and no other abdominal surgeries. No urinarysymptoms, no problem with bowel movements, no fevers.Prior similar symptoms: NoPast Medical History- Allergies and Home MedsAllergies/Adverse Reactions:AllergiesNo Known Allergies Allergy (Verified 08/11/18 11:36)Primary Care Physician:Gera Smith MD [Primary Care Provider] -Past Medical History: NoneSurgical History: herniorrhaphyLives: Spouse/ Significant OtherSmoking Status: Never smokerReview of SystemsGeneral: Reports: Malaise. Denies: Chills, Fever, SweatsCardiovascular: Denies: Chest pain, PalpitationsRespiratory: Denies: Dyspnea, Cough, Dyspnea on exertionGastrointestinal : Reports: Abdominal pain, Nausea, Vomiting. Denies: Diarrhea, Constipation,Melena, HematocheziaGenitourinar y: Denies: Dysuria, Hematuria, FrequencyMusculoskeletal : Denies: Neck pain, Back pain, Swelling, Extremity PainSkin: Denies: Rash, AbscessNeurological: Denies: Headache, Weakness, NumbnessPsych: Denies: Anxiety, Suicidal thoughtsEndocrine: Denies: Polyuria, PolydipsiaHematologic: Denies: Easy bruising, Easy bleedingAllergy: Denies: Swelling of the mouth, Swelling of the tonguePhysical ExamVital Signs/Narrative:Vital Signs08/11/18 11:34 97.9 F 64 16 148/78 H 96Inital Vital Signs reviewed: YesGeneral: Well nourished, Well developedHead: Normocephalic, AtraumaticEyes: Perrl, EOMIENT: Moist mucous membranes, No rhinorrheaNeck: Supple, NontenderCardiovascular: Regular rate, Regular rhythm, No murmursRespiratory: No distress, CTA bilaterally, Chest nontenderAbdomen: Soft, Nondistended, Normal bowel sounds, Tender - Right lower quadrant, lateral toMcBurney's point. Negative for: Guarding, Rebound tenderness, Inguinal hernia, Psoas sign,Obturator sign, Rovsig's sign, Weaver's signBack: Nontender, Normal Inspection. Negative for: CVA tendernessExtremities: Nontender, No edemaSkin: Normal color, No rashNeurological: Alert, Oriented x3, Cranial nerves II-XII grossly intact, Normal Strength, NormalSensationPsycholog ical: Normal affectDiagnostic/Tx/Re-e valImpressionsAbdomen/Pe lvis CT 08/11/18 12:12IMPRESSION:Right perinephric stranding with right hydronephrosis and hydroureter dueto a 3.5 mm calculus at the right ureterovesical junction as it enters theurinary bladder.Electronically Signed:Lucius Huang MD at 13:51 ESTTel [phone], Service support , 12 12:12Abdomen/Pelvis W IV Cont ONLY [CT] StatLaboratory ResultsWBC 9.6RBC 4.92Hgb 15.8Hct 46.4MCV 94.3 H- Medical Decision MakingAfter a dose of morphine, patient really did not feel much better. Therefore he was givenanother dose along with Toradol, and on reevaluation is discomfort is completely gone. CTshowed a normal appendix and right perinephric stranding with hydronephrosis from a 3.5 mm UVJstone, likely explaining his symptoms. He was reassured. He feels well. Expectant managementindicated. Given urology for follow-up if he needs it, he does have a little renalinsufficiency unknown if that is acute or chronic, no old labs available. No sign of urineinfection associated with this. Given urine strainers, her prescription for analgesics, aswell as Flomax to see if that helps, given reasons to return. He is comfortable with thisplan.ED Disposition- Plan for ED Patient:Disposition: Home or Assisted LivingChief Complaint: Abd PainDiagnosis:Ureteral colic, Urolithiasis, Renal insufficiencyInstruction s: ED Stone Renal W Colic, ED Strainer UrinePrescriptions:Oxyco done HCl/Acetaminophen [Percocet 5/325] 1 tab PO Q4H PRN PRN 3 Days #18 tabPRN Reason: PainOndansetron [Zofran] 8 mg PO Q8H PRN PRN #15 tabPRN Reason: NauseaTamsulosin HCl [Flomax] 0.4 mg PO DAILY #7 capReferrals:Bubba Smith MD [Primary Care Provider] -Luciano Pryor MD [STAFF PHYSICIAN] - 10-14 Days if not betterWhat to do if you have ProblemsFor any increased pain, shortness of breath, bleeding, nausea or vomiting, chest pain, or anyunexpected problems, contact your Primary Care Provider. Call [facility] ([phone])or report to the closest Emergency Room.Call 911 if necessary.08/11/18 1449 Date Hiral Gomez [facility] TULSAosign Signature (If Indicated): Date CC : Gera Smith MD Normal [facility] Urinalysis, Completeon 08-11 BACTERIA 0 SEEN Normal None Seen [facility] Comment on above: Order Comment: Order Date: 08/11/18How was Urine Obtained? CLEAN CATCH Performed By: #### L 400.0001 ####[facility] [address] [place], [address] MUCUS, URINE 0 SEEN Normal [facility] Comment on above: Order Comment: Order Date: 08/11/18How was Urine Obtained? CLEAN CATCH Performed By: #### L 400.0001 ####[facility] [address] [place], [address] RBC Test strip #/vol (U) 0 SEEN Normal 0-5 [facility] Comment on above: Order Comment: Order Date: 08/11/18How was Urine Obtained? CLEAN CATCH Performed By: #### L 400.0001 ####[facility] [address] [place], [address] SQUAM EPI 0 SEEN Normal 0-5 [facility] Comment on above: Order Comment: Order Date: 08/11/18How was Urine Obtained? CLEAN CATCH Performed By: #### L 400.0001 ####[facility] [address] [place], [address] WBC 0-5 SEEN Normal 0-5 [facility] Comment on above: Order Comment: Order Date: 08/11/18How was Urine Obtained? CLEAN CATCH Performed By: #### L 400.0001 ####[facility] [address] [place], [address] BILIRUBIN URINE Negative Normal Negative [facility] Comment on above: Order Comment: Order Date: 08/11/18How was Urine Obtained? CLEAN CATCH Performed By: #### L 400.0001 ####[facility] [address] [place], [address] CLARITY Clear Normal Clear [facility] Comment on above: Order Comment: Order Date: 08/11/18How was Urine Obtained? CLEAN CATCH Performed By: #### L 400.0001 ####[facility] [address] [place], [address] COLOR Yellow Normal Yellow [facility] Comment on above: Order Comment: Order Date: 08/11/18How was Urine Obtained? CLEAN CATCH Performed By: #### L 400.0001 ####[facility] [address] [place], [address] GLUCOSE, UR Normal Normal Normal [facility] Comment on above: Order Comment: Order Date: 08/11/18How was Urine Obtained? CLEAN CATCH Performed By: #### L 400.0001 ####[facility] [address] [place], [address] KETONE UR 15 mg/dl High Negative [facility] Comment on above: Order Comment: Order Date: 08/11/18How was Urine Obtained? CLEAN CATCH Performed By: #### L 400.0001 ####[facility] [address] [place], [address] LEUK ESTERASE 25 /ul High Negative [facility] Comment on above: Order Comment: Order Date: 08/11/18How was Urine Obtained? CLEAN CATCH Performed By: #### L 400.0001 ####[facility] [address] [place], [address] NITRITE UR Negative Normal Negative [facility] Comment on above: Order Comment: Order Date: 08/11/18How was Urine Obtained? CLEAN CATCH Performed By: #### L 400.0001 ####[facility] [address] [place], [address] OCCULT BLOOD-UR Negative Normal Negative [facility] Comment on above: Order Comment: Order Date: 08/11/18How was Urine Obtained? CLEAN CATCH Performed By: #### L 400.0001 ####[facility] [address] [place], [address] pH UR 6.0 Normal 5.0 - 8.0 [facility] Comment on above: Order Comment: Order Date: 08/11/18How was Urine Obtained? CLEAN CATCH Performed By: #### L 400.0001 ####[facility] [address] [place], [address] Protein mass conc Negative Normal Negative [facility] Comment on above: Order Comment: Order Date: 08/11/18How was Urine Obtained? CLEAN CATCH Performed By: #### L 400.0001 ####[facility] [address] [place], [address] SP.GR. DIPSTX 1.010 Normal 1.002-1.030 [facility] Comment on above: Order Comment: Order Date: 08/11/18How was Urine Obtained? CLEAN CATCH Performed By: #### L 400.0001 ####[facility] [address] [place], [address] UROBILI Normal Normal Normal [facility] Comment on above: Order Comment: Order Date: 08/11/18How was Urine Obtained? CLEAN CATCH Performed By: #### L 400.0001 ####[facility] [address] [place], [address] Encounters Encounter Date Encounter Type Care Provider Facility Start: 08-11-2018 End: 08-11-2018 Emergency department patient visit HIRAL GOMEZ Facility:[facility] Payers Date Payer Category Payer Private Health Insurance [facility] [id number] 2018 Self-pay Unknown [id number] Summary Purpose Family History No Family History Records FoundNo Family History Records Found Advance Directives No Advanced Directives Records FoundNo Advanced Directives Records Found Additional Source Comments (unrecognized sect ion and content) No Status Records FoundNo Status Records Found INFORMATION SOURCE (unrecogn ized section and content) DATE CREATED AUTHOR 08/13/2018 [facility] DATE CREATED AUTHOR 'S BRIANNA ATLEW 09/14/2021 [facility] FOR RECORDS PERTAINING TO PATIENTS WHO ARE OR HAVE BEEN ENROLLED IN A CHEMICAL DEPENDENCY/SUBSTANCEABUSE PROGRAM, SOME INFORMATION MAY BE OMITTED. This clinical summary was aggregated from multiple sources. Caution should be exercised in using it in the provision of clinical care. This summary normalizes information from multiple sources, and as a consequence, information in this document may materially change the coding, format and clinical context of patient data. In addition, data may be omitted in some cases. CLINICAL DECISIONS SHOULD BE BASED ON THE PRIMARY CLINICAL RECORDS. [facility]. provides no warranty or guarantee of the accuracy or completeness of information in this document.
== END | disposition home or self-care (01) ==
PROVIDERS: PCP Nurse Practitioner Family; Visit Provider Nurse Practitioner Family
DX: I10 Essential (primary) hypertension (principal); E78.5 Hyperlipidemia, unspecified; Z12.5 Encounter for screening for malignant neoplasm of prostate
CPT/HCPCS: 36415; 80053; 80061; 84153; 85025; G0103